=== PATIENT | male | born 1950 | race Caucasian/White ===

== ENCOUNTER 2024-12-31 12:09 | Emergency (ER) | payer OTHER, SELFPAY ==
[2024-12-31 12:12] VITALS: BP 159/74; PULSE 84; RESP 18; TEMP 36.6; O2SAT 97
[2024-12-31 12:14] VITALS: BP 159/74; PULSE 84; RESP 18; TEMP 36.6; O2SAT 97
--- NOTE | 2024-12-31 12:48 | W.ED.GENAD ---
Discharge Plan Disposition Patient Disposition: Home Condition: Stable Discharge Details Clinical Impression: Encounter for Pacheco catheter replacement Primary Care Provider: Laquita Callahan ED Provider: Angeline Paiz Home Meds and New Rx's Prescriptions: Continued albuterol sulfate 90 mcg/actuation HFA aerosol inhaler 2 puff inhalation Q4H PRN carboxymethylcellulose sodium 0.5 % dropperette 1 drp ophthalmic (eye) QID Rx Instructions: instill one drop in both eyes four times a day for dry eye clopidogrel 75 mg tablet 75 mg PO DAILY colchicine 0.6 mg tablet 0.6 mg PO DAILY Rx Instructions: take tablets by mouth as directed: for gout at first sign of gout flare, take 2 tablets immediately then take 1 tablet 1 hour later, then take 1 tablet twice daily for 2 days. Then 1 tablet daily for 2 days. Then stop. diclofenac sodium 3 % gel 1 applic topical BID Rx Instructions: apply 1 application topically twice daily as needed for pain/inflammation apply to left shoulder diltiazem HCl 120 mg capsule,extended release 24hr 120 mg PO DAILY duloxetine 60 mg capsule,delayed release(DR/EC) 60 mg PO DAILY tiotropium-olodaterol 2.5-2.5 mcg/actuation mist 2 puff inhalation DAILY prazosin 2 mg capsule 2 mg PO QHS rosuvastatin 40 mg tablet 40 mg PO DAILY tamsulosin 0.4 mg capsule 0.4 mg PO DAILY tiotropium bromide 2.5 mcg/actuation mist 2 puff inhalation DAILY semaglutide (weight loss) 2.4 mg/0.75 mL pen injector 2.4 mg subcut QWEEK omega-3 fatty acids 1,000 mg capsule 1,000 mg PO DAILY Discharge Instructions Instructions: How to Care for Your Pacheco Catheter Additional Instructions: Your Pacheco catheter was replaced today. Please ensure that it is draining properly, please follow-up as previously instructed by the [place]. Follow up with primary care provider or as directed by the [place], urology as previously instructed. Return to ED sooner if any worsening problems with the Pacheco catheter, inability to drain, large blood clots, abdominal pressure, fever or concerns. Referrals: [facility] [Outside] Referral Note: ER follow up Call for Appt Clinical Impression: Encounter for Pacheco catheter replacement Laquita Callahan [Primary Care Provider, Medicine] - 1 week Discharge Data Discharge Date/Time-TO BE ENTERED AT DEPARTURE: 12/31/24 14:26 HPI General Mode of arrival: ambulatory. Date/Time Provider Initiated Documentation: 12/31/24 12:19. Limitations to Documentation: no limitations. Information obtained by: patient, family, RN notes reviewed and old records reviewed. HPI Narrative: 74-year-old male presents with decreased urine drainage from his Pacheco catheter since 3:00 this morning. He reports that the bag became dislodged from the catheter inadvertently. He now states that he has burning every time when standing up and feels the urgency of and need to urinate. There is minimal drainage from the urinary bag. Denies any other associated symptoms or concerns. The Pacheco was placed for urinary retention at the [facility] on Saturday, patient states that he had over 900 cc in his bladder at the time of insertion. Related Data Home Medications ?Medication ?Instructions ?Recorded ?Confirmed albuterol sulfate 90 mcg/actuation 2 puff inhalation Q4H PRN 07/30/24 12/31/24 aerosol inhaler carboxymethylcellulose sodium 0.5 1 drp ophthalmic (eye) QID 07/30/24 12/31/24 % eye drops in a dropperette clopidogrel 75 mg tablet 75 mg PO DAILY 07/30/24 12/31/24 colchicine 0.6 mg tablet 0.6 mg PO DAILY 07/30/24 12/31/24 diclofenac sodium 3 % topical gel 1 applic topical BID 07/30/24 12/31/24 diltiazem HCl 120 mg capsule,24 120 mg PO DAILY 07/30/24 12/31/24 hr,extended release duloxetine 60 mg capsule,delayed 60 mg PO DAILY 07/30/24 12/31/24 release omega-3 fatty acids 1,000 mg 1,000 mg PO DAILY 07/30/24 12/31/24 capsule prazosin 2 mg capsule 2 mg PO QHS 07/30/24 12/31/24 rosuvastatin 40 mg tablet 40 mg PO DAILY 07/30/24 12/31/24 semaglutide (weight loss) 2.4 2.4 mg subcut QWEEK 07/30/24 12/31/24 mg/0.75 mL subcutaneous pen injector tamsulosin 0.4 mg capsule 0.4 mg PO DAILY 03/27/25 08/28/25 tiotropium 2.5 mcg-olodaterol 2.5 2 puff inhalation DAILY 07/30/24 12/31/24 mcg/actuation mist for inhalation tiotropium bromide 2.5 2 puff inhalation DAILY 07/30/24 12/31/24 mcg/actuation mist for inhalation Allergies Allergy/AdvReac Type Severity Reaction Status Date / Time aspirin Allergy Other (See Verified 12/31/24 12:15 Comment) nafcillin Allergy Other (See Verified 12/31/24 12:15 Comment) General Stated Complaint: Urinary LEO: 4 Review of Systems All systems reviewed & are unremarkable except as noted in HPI and below Constitutional Constitutional: Denies chills and Denies fever(s) Gastrointestinal Gastrointestinal: Reports abdominal pain (Suprapubic fullness), Denies hematochezia, Denies diarrhea and Denies nausea Genitourinary Genitourinary: Reports as per HPI, Reports oliguria, Reports dysuria (Burning and decreased drainage noted to Pacheco catheter bag), Denies penile discharge, Denies scrotal swelling, Denies testicular mass and Denies testicular pain Exam Narrative Exam Narrative: Constitutional: Alert and oriented x3. Appears stated age. Obese body habitus. Appears chronically ill. Nontoxic. Abdomen: Soft, non-distended, Normoactive bowel sounds all 4 quads. Mild tenderness suprapubically with palpation, exam limited due to patient girth. : Patient has an indwelling catheter and a leg bag noted, uncircumcised, see exam below, small amount of scant blood noted at the meatus, no significant drainage or testicular swelling, foreskin easily retractable. Musculoskeletal: Uses a walker, right BKA moves all 4 extremities with some difficulty. Neurologic: Cranial nerves II-XII intact. Alert and oriented x 3. Male General Exam: Yes other (Uncircumcised, small amount of blood at meatus) Other: Patient has a large pannus, Course Vital Signs Vital signs: Vital Signs Temperature 36.6 C 12/31/24 12:12 Pulse 84 12/31/24 12:12 Respiratory Rate 18 12/31/24 12:12 Blood Pressure 159/74 H 12/31/24 12:12 Pulse Oximetry 97 12/31/24 12:12 Temperature 36.6 C 12/31/24 12:14 Pulse 84 12/31/24 12:14 Respiratory Rate 18 12/31/24 12:14 Blood Pressure 159/74 H 12/31/24 12:14 Pulse Oximetry 97 12/31/24 12:14 Pain Level 4 12/31/24 12:14 Medical Decision Making 74-year-old male presents with decreased urine drainage from his Pacheco catheter since 3:00 this morning. He reports that the bag became dislodged from the catheter inadvertently. He now states that he has burning every time when standing up and feels the urgency of and need to urinate. There is minimal drainage from the urinary bag. Denies any other associated symptoms or concerns. The Pacheco was placed for urinary retention at the [facility] on Saturday, patient states that he had over 900 cc in his bladder at the time of insertion. Bladder scan ordered, Re-placement of Pacheco catheter and Uro-jet. staff nurse and patient aware of plan of care. Patient has no tachycardia no fever, denies any systemic symptoms, at this time I do not feel that urinalysis or blood work is warranted at this point. The report is that there was a possible mechanical dislodgment of the Pacheco catheter. Will plan to replace the Pacheco. Informed by staff nurse that Pacheco catheter was replaced with approximately 400 cc of sachi-colored urine output, it is actively draining. Patient reports improvement in symptoms. Will plan for discharge. Patient discharged in hemodynamically stable condition, reports feeling much improved. Patient discharged into the care of his . This text was generated using [employer] dictation system, please disregard any oddities of phrase or misspellings. PFSH All Active Problems (Updated 12/31/24 @ 14:02 by Angeline Paiz NP) Encounter for Pacheco catheter replacement (Acute) Post-traumatic stress disorder, chronic (Acute) Pain in left knee (Acute) Obstructive sleep apnea (adult) (pediatric) (Acute) Nonrheumatic aortic (valve) insufficiency (Acute) Muscle weakness (generalized) (Acute) Chronic obstructive pulmonary disease with (acute) exacerbation (Acute) Medical History (Updated 12/31/24 @ 14:02 by Angeline Paiz NP) Obesity Sleep apnea Aortic regurgitation CAD (coronary artery disease) Unspecified open wound, right lower leg, initial encounter Mild intermittent asthma with (acute) exacerbation Male erectile dysfunction, unspecified Major depressive disorder, 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
[2024-12-31] MEDS: Lidocaine 2% Jelly 11 ML SYR UR (13:27)
[2024-12-31 14:19] VITALS: BP 141/57; PULSE 84; RESP 14; TEMP 36.6; O2SAT 97
== END 2024-12-31 14:26 | disposition home or self-care (01) ==
PROVIDERS: Emergency Provider Registered Nurse Emergency; PCP Internal Medicine Geriatric Medicine
DX: T83.028A Displacement of other urinary catheter, initial encounter (principal)
CPT/HCPCS: 51702; 99283

== ENCOUNTER 2025-03-11 20:46 | Inpatient (IN) | payer OTHER, SELFPAY ==
[2025-03-11] VITALS (20 sets, daily range): BP systolic 111–115; BP diastolic 25–32; PULSE 47–71; RESP 18; TEMP 36.7; O2SAT 93–99
--- NOTE | 2025-03-11 20:30 | DI.RAD_ITS ---
Exam(s) XR TIB/FIB LT XR KNEE LT 3V AP,LAT,RUTH EXAM: XR KNEE LT 3V AP,LAT,RUTH and XR tib/fib LT CLINICAL HISTORY: L knee pain; fall. TECHNIQUE: 2D digital imaging was performed of the left tibia/fibula and knee. Five images were obtained. AP, lateral and PA tunnel views were obtained. COMPARISON: CR,XR XR TIB/FIB LT from 03/11/2025 FINDINGS: BONES: There is an acute transverse fracture through the proximal metaphysis of the tibia. It occurs adjacent to the distal aspect of the tibial component of the patient's knee arthroplasty. On the lateral view, there also appears to be a nondisplaced oblique fracture through the fibular head. There is an enthesophyte versus fracture fragment at the superior patella. The distal tibia and fibula are intact. There is an enthesophyte at the posterior calcaneus. JOINTS: There are postsurgical changes of a left total knee arthroplasty. There is a joint effusion. No loose body. SOFT TISSUE: Normal. IMPRESSION: 1. Periprosthetic transverse fracture through the proximal tibial metaphysis involving the interface between the orthopedic hardware in the segment. 2. Findings suggestive of a nondisplaced oblique fracture through the fibular head best appreciated on the lateral view. 3. Enthesophyte versus fracture involving the superior patella. 4. The preliminary [facility] report was reviewed. DATA REPOSITORY: RADIATION DOSE DELIVERED:
--- NOTE | 2025-03-11 20:45 | W.ED.GENAD ---
Discharge Plan Disposition Patient Disposition: Transfer-Acute Inpatient Care Specific Acute Inpt Facility: Other Condition: Stable Discharge Details Clinical Impression: Periprosthetic fracture around internal prosthetic left knee joint Primary Care Provider: Laquita Callahan ED Provider: Ronaldo Kearney Home Meds and New Rx's Prescriptions: No Action albuterol sulfate 90 mcg/actuation HFA aerosol inhaler 2 puff inhalation Q4H PRN carboxymethylcellulose sodium 0.5 % dropperette 1 drp ophthalmic (eye) QID Rx Instructions: instill one drop in both eyes four times a day for dry eye clopidogrel 75 mg tablet 75 mg PO DAILY colchicine 0.6 mg tablet 0.6 mg PO DAILY Rx Instructions: take tablets by mouth as directed: for gout at first sign of gout flare, take 2 tablets immediately then take 1 tablet 1 hour later, then take 1 tablet twice daily for 2 days. Then 1 tablet daily for 2 days. Then stop. diclofenac sodium 3 % gel 1 applic topical BID Rx Instructions: apply 1 application topically twice daily as needed for pain/inflammation apply to left shoulder diltiazem HCl 120 mg capsule,extended release 24hr 120 mg PO DAILY duloxetine 60 mg capsule,delayed release(DR/EC) 60 mg PO DAILY tiotropium-olodaterol 2.5-2.5 mcg/actuation mist 2 puff inhalation DAILY prazosin 2 mg capsule 2 mg PO QHS rosuvastatin 40 mg tablet 40 mg PO DAILY tamsulosin 0.4 mg capsule 0.4 mg PO DAILY tiotropium bromide 2.5 mcg/actuation mist 2 puff inhalation DAILY semaglutide (weight loss) 2.4 mg/0.75 mL pen injector 2.4 mg subcut QWEEK omega-3 fatty acids 1,000 mg capsule 1,000 mg PO DAILY HPI General Date/Time Provider Initiated Documentation: 03/11/25 21:38. HPI Narrative: 74 year-old male presents to ED today by EMS with a chief complaint of ground level fall at home getting into his car, felt a crack, pain to L knee and proximal grady- has contralateral amputation, with onset just prior to arrival, may have slightly bumped his head without LOC. Quality described as very painful L grady, no radiation to open wound/bleeding, numbness/tingling distally, confusion, nausea, vomiting, scalp hematoma. Severity is described as severe. Palliating factors include 1g APAP given by EMS. Provoking factors include nothing specific. Events leading up to the incident/Associated Symptoms: Patient has knee replacement to this knee, done [facility]. Patient not anticoagulated. Related Data Home Medications Medication Instructions Recorded Confirmed albuterol sulfate 90 mcg/actuation 2 puff inhalation Q4H PRN 07/30/24 03/11/25 aerosol inhaler carboxymethylcellulose sodium 0.5 1 drp ophthalmic (eye) QID 07/30/24 03/11/25 % eye drops in a dropperette clopidogrel 75 mg tablet 75 mg PO DAILY 07/30/24 03/11/25 colchicine 0.6 mg tablet 0.6 mg PO DAILY 07/30/24 03/11/25 diclofenac sodium 3 % topical gel 1 applic topical BID 07/30/24 03/11/25 diltiazem HCl 120 mg capsule,24 120 mg PO DAILY 07/30/24 03/11/25 hr,extended release duloxetine 60 mg capsule,delayed 60 mg PO DAILY 07/30/24 03/11/25 release omega-3 fatty acids 1,000 mg 1,000 mg PO DAILY 07/30/24 03/11/25 capsule prazosin 2 mg capsule 2 mg PO QHS 07/30/24 03/11/25 rosuvastatin 40 mg tablet 40 mg PO DAILY 07/30/24 03/11/25 semaglutide (weight loss) 2.4 2.4 mg subcut QWEEK 07/30/24 03/11/25 mg/0.75 mL subcutaneous pen injector tamsulosin 0.4 mg capsule 0.4 mg PO DAILY 07/30/24 03/11/25 tiotropium 2.5 mcg-olodaterol 2.5 2 puff inhalation DAILY 07/30/24 03/11/25 mcg/actuation mist for inhalation tiotropium bromide 2.5 2 puff inhalation DAILY 07/30/24 03/11/25 mcg/actuation mist for inhalation Allergies Allergy/AdvReac Type Severity Reaction Status Date / Time aspirin Allergy Other (See Verified 12/31/24 12:15 Comment) nafcillin Allergy Other (See Verified 12/31/24 12:15 Comment) General Stated Complaint: Orthopedic LEO: 3 Review of Systems All systems reviewed & are unremarkable except as noted in HPI and below Exam Narrative Exam Narrative: GENERAL APPEARANCE: obesity, non-toxic, awake and alert, atraumatic, moderate acute distress. SKIN: Warm, pink, dry, intact, without rashes/lesions/ulcerations. HEAD: Normocephalic, very minor abrasion pinpoint to left crown without Pastrana sign or periorbital ecchymosis, normal hair distribution for gender/age. EYES: Normal conjunctiva, no exudates on lids/lashes. ENT: Nares patent, no circumoral cyanosis, no facial swelling NECK: Supple, trachea midline, painless cervical ROM. LUNGS/CHEST: Lungs CTA bilaterally- no rhonchi/rales, difficult auscultation to body habitus, non-labored respirations, normal A/P diameter, symmetrical expansion, no chest wall deformity HEART (CV/PV): Regular rate and rhythm without murmur, no peripheral edema, no JVD. ABDOMEN: Soft, non-distended, no guarding, no tenderness. MSK: No cyanosis, spine midline without tenderness, normal curvature. R leg BKA, L leg: Exquisite tenderness to the proximal grady, patellar tenderness, special tests of the knee not tolerated, mild swelling without severe ecchymosis or skin changes, brisk capillary refill distal, no femoral tenderness and femur stable to palpation, no left hip tenderness NEURO: Mental Status AAOx4 - alert to person, place, time, events No facial droop, no forehead involvement. Motor: No focal weakness of upper extremities Sensory: sensation intact to light touch globally. Gait NT. PSYCH: euthymic, cooperative, pleasant, appropriate speech Course Vital Signs Vital signs: Vital Signs Temperature 36.7 C 03/11/25 20:28 Pulse 54 L 03/11/25 20:28 Respiratory Rate 18 03/11/25 20:28 Pulse Oximetry 98 03/11/25 20:28 Temperature 36.7 C 03/11/25 20:28 Temperature Source Oral 03/11/25 20:28 Pulse 54 L 03/11/25 20:28 Respiratory Rate 18 03/11/25 20:28 Blood Pressure Position Supine 03/11/25 20:28 Pulse Oximetry 98 03/11/25 20:28 Pain Level 10 03/11/25 20:28 Medical Decision Making This dictation utilizes [id number] dictation software and may contain unedited grammatical errors. 74 year-old male presents to ED today by EMS with a chief complaint of ground level fall at home getting into his car, felt a crack, pain to L knee and proximal grady- has contralateral amputation, with onset just prior to arrival, may have slightly bumped his head without LOC. Quality described as very painful L grady, no radiation to open wound/bleeding, numbness/tingling distally, confusion, nausea, vomiting, scalp hematoma. Severity is described as severe. Palliating factors include 1g APAP given by EMS. Provoking factors include nothing specific. Events leading up to the incident/Associated Symptoms: Patient has knee replacement to this knee, done at the [facility] in November. Patients' medical history: Obesity, sleep apnea, aortic regurg, CAD, history of right BKA, COPD. Family and social history: Lives at home with his , no recent travel or sick contacts, no EtOH or drug use. Pertinent exam findings / vital signs include exquisite tenderness to the proximal grady of the left leg without severe bruising, no open wound or bleeding, tenderness to the left patella, did not tolerate any special tests of the knee, satiety abrasion to the left crown of his head without scalp hematoma, no Pastrana sign, periorbital ecchymosis, benign cardiopulmonary exam. Differential / pathologies of concern include ICH, fracture. Diagnostic studies of: - CT head without contrast, XR L knee and tib/fib, basic laboratory workup. - CT head is unremarkable no intracranial bleeding - X-ray shows periprosthetic fracture of the proximal tibia & likely patellar fracture- patient not tolerating 4 view XR at this time Interventions of: -Consult with [facility] for transfer- paged at [phone] - they have no ortho coverage. -Discussed with Dr. Pride, not able to consult on the patient tomorrow if admitted here, will seek transfer as this may require plate. -1g APAP by EMS -0.5mg IVP hydromorphone PRN Q2hr ED Course/Assessment/Plan: 74-year-old male presents with a fall getting into his car at home where he hurt his left leg significantly hearing a pop or crack having periprosthetic fracture to proximal tibia without fibular fracture and a suspected patellar fracture on lateral view patient not tolerating fourth view x-ray at this time. CT head is negative for acute intracranial bleeding. Patient [facility], I am approaching them for transfer as we do not have orthopedic capability tonight and they have not refused the patient. Patient signed out to oncoming provider at shift change with transfer likely. Pain well controlled with one dose hydromorphone and [facility]AP. [facility] to [facility] him here per our orthopaedics consult. Seeking transfer to [facility] - spoke with Dr. Benson from [facility] ortho- they will take the patient in transfer with admit to hospitalist service at [facility]. Signed out at shift change to Dr. Shin pending accepting physician from [facility] medicine service, transfer tomorrow. Disposition of Periprosthetic fracture around internal prosthetic left knee joint. Patient verbalized understanding of the plan and return to ED criteria and engaged in shared decision making. Medical Records Medical records reviewed: Yes I reviewed the patient's medical records. Imaging Data Radiologic Study: Attestation: I personally reviewed and interpreted this imaging study as follows: Imaging: CT Scan Radiologist's impression: Addendum created by Haroon Wilkerson MD on 03/11/2025 9:32:59 PM EST: THIS REPORT CONTAINS FINDINGS THAT MAY BE CRITICAL TO PATIENT CARE. The findings were verbally communicated via telephone conference with RONALDO KEARNEY at 9:32 PM EST on 03/11/2025. The findings were acknowledged and understood. Initial report created on 03/11/2025 9:30:21 PM EST: PROCEDURE INFORMATION: Exam: CT Head Without Contrast Exam date and time: 03/11/2025 8:56 PM Age: 74 years old Clinical indication: Unspecified fall, initial encounter; Other: Fall with headstrike on blood thinners; Headache TECHNIQUE: Imaging protocol: Computed tomography of the head without contrast. Radiation optimization: All CT scans at this facility use at least one of these dose optimization techniques: automated exposure control; mA and/or kV adjustment per patient size (includes targeted exams where dose is matched to clinical indication); or iterative reconstruction. Other technique: STROKE PROTOCOL was implemented. COMPARISON: No relevant prior studies available. FINDINGS: Brain: Slight prominence of cerebral sulci reflects mild atrophy with no supratentorial mass or mass effect detected. Brainstem and cerebellum are unremarkable. There is no evidence of acute transcortical infarction or recent intracranial hemorrhage. Cerebral ventricles: No midline shift or hydrocephalus. Paranasal sinuses: A few scattered right-sided ethmoidal mucosal densities are identified with other paranasal sinuses grossly clear throughout. Mastoid air cells: Grossly clear bilaterally. Bones: No acute fracture. Soft tissues: Unremarkable. IMPRESSION: Mild cerebral atrophy with no evidence of acute infarct, recent intracranial hemorrhage or hydrocephalus. No acute intracranial process is detected. ASSESSMENT: ASPECTS ([place] Stroke Program Early CT Score) is 10. Dictated and Authenticated by: Haroon Wilkerson MD. Radiologic Study #2: Attestation: I personally reviewed and interpreted this imaging study as follows: Imaging: X-Ray Radiologist's impression: Exam: XR Left Knee Exam date and time: 03/11/2025 9:08 PM Age: 74 years old Clinical indication: Injury or trauma; Fall; Fracture, traumatic; Closed fracture; Patella or knee; Left; Prior surgery; Surgery date: 1-6 months; Surgery type: 11/2024 replacment TECHNIQUE: Imaging protocol: Radiologic exam of the left knee. Views: 3 views. COMPARISON: No relevant prior studies available. FINDINGS: Bones/joints: There has been previous left-sided total knee arthroplasty. A transverse periprosthetic fracture involves the proximal left tibial metaphysis along the inferior margin of the left tibial prosthesis and cement interface. Suspected comminuted fracture is also seen along the superior pole of the left patella on the lateral projection. No other acute fractures are detected. Soft tissues: Probable joint effusion with fluid in the suprapatellar pouch on the lateral view. IMPRESSION: A transverse periprosthetic fracture involves the proximal left tibial metaphysis along the inferior margin of the left tibial prosthesis and cement interface. Suspected comminuted fracture is also seen along the superior pole of the left patella on the lateral projection. Probable left knee joint effusion also identified as above. Dictated and Authenticated by: Haroon Wilkerson MD. Radiologic Study #3: Attestation: I personally reviewed and interpreted this imaging study as follows: Imaging: X-Ray Radiologist's impression: Exam: XR Left Tibia and Fibula Exam date and time: 03/11/2025 9:10 PM Age: 74 years old Clinical indication: Injury or trauma; Fall; Blunt trauma; Lower leg; Left TECHNIQUE: Imaging protocol: Radiologic exam of the left tibia and fibula. Views: 2 views. COMPARISON: CR XR KNEE LT 3V AP,LAT,RUTH 03/11/2025 9:08 PM FINDINGS: Bones/joints: There has been previous left-sided total knee arthroplasty. A transverse periprosthetic fracture involves the proximal left tibial metaphysis along the inferior margin of the left tibial prosthesis and cement interface. No other left tibial or fibular fracture is detected. Soft tissues: Unremarkable. IMPRESSION: A transverse periprosthetic fracture involves the proximal left tibial metaphysis along the inferior margin of the left tibial prosthesis and cement interface. No other left tibial or fibular fracture is detected. Dictated and Authenticated by: Haroon Wilkerson MD. [facility] All Active Problems (Updated 03/11/25 @ 21:50 by JOSESITO Walden) Periprosthetic fracture around internal prosthetic left knee joint (Acute) Post-traumatic stress disorder, chronic (Acute) Pain in left knee (Acute) Obstructive sleep apnea (adult) (pediatric) (Acute) Nonrheumatic aortic (valve) insufficiency (Acute) Muscle weakness (generalized) (Acute) Chronic obstructive pulmonary disease with (acute) exacerbation (Acute) Medical History (Updated 03/11/25 @ 21:50 by JOSESITO Walden) Obesity Sleep apnea Aortic regurgitation CAD (coronary artery disease) Unspecified open wound, right lower leg, initial encounter Mild intermittent asthma with (acute) exacerbation Male erectile dysfunction, unspecified Major depressive disorder, 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
[2025-03-11] MEDS: HYDROmorphone 2 MG/ML SYR 0.5 MG IVP ×2 (20:56→23:07)
--- NOTE | 2025-03-11 21:17 | DI.CT_ITS ---
Exam(s) CT HEAD WO EXAM: CT HEAD WO CLINICAL HISTORY: fall on thinners, bump to L crown. TECHNIQUE: Imaging Protocol: Axial computed tomography images with coronal and sagittal reformatted images were created and reviewed COMPARISON: No exams were available for comparison FINDINGS: Ventricles and Extra axial spaces: Normal in size and morphology for the patient's age. Hemorrhage: None. Cerebral parenchyma: There is no evidence of an acute territorial infarct or mass effect. Midline shift: None. Brainstem/Cerebellum: Normal. Calvarium: Normal. Visualized Paranasal sinuses/Mastoids: Clear. Soft Tissues: Unremarkable. IMPRESSION: 1. No acute intracranial process. 2. The preliminary [facility] report was reviewed. RADIATION DOSE DELIVERED: 861.85mGy.cm Total DLP DATA REPOSITORY: All CT scans at this facility are submitted to the National Radiology Data Registry (NRDR) Dose Index Registry (DIR) with the [employer] (ACR). RADIATION OPTIMIZATION: All CT scans at this facility use at least one of these dose optimization techniques: automated exposure control; mA and/or kV adjustment per patient size (includes targeted exams where dose is matched to clinical indication); or iterative reconstruction.
--- NOTE | 2025-03-11 21:31 | DI.[facility]AD_ITS ---
Addendum created by Haroon Wilkerson MD on 03/11/2025 9:32:59 PM EST: THIS REPORT CONTAINS FINDINGS THAT MAY BE CRITICAL TO PATIENT CARE. The findings were verbally communicated via telephone conference with LATRICE KEARNEY at 9:32 PM EST on 03/11/2025. The findings were acknowledged and understood. Initial report created on 03/11/2025 9:30:21 PM EST: PROCEDURE INFORMATION: Exam: CT Head Without Contrast Exam date and time: 03/11/2025 8:56 PM Age: 74 years old Clinical indication: Unspecified fall, initial encounter; Other: Fall with headstrike on blood thinners; Headache TECHNIQUE: Imaging protocol: Computed tomography of the head without contrast. Radiation optimization: All CT scans at this facility use at least one of these dose optimization techniques: automated exposure control; mA and/or kV adjustment per patient size (includes targeted exams where dose is matched to clinical indication); or iterative reconstruction. Other technique: STROKE PROTOCOL was implemented. COMPARISON: No relevant prior studies available. FINDINGS: Brain: Slight prominence of cerebral sulci reflects mild atrophy with no supratentorial mass or mass effect detected. Brainstem and cerebellum are unremarkable. There is no evidence of acute transcortical infarction or recent intracranial hemorrhage. Cerebral ventricles: No midline shift or hydrocephalus. Paranasal sinuses: A few scattered right-sided ethmoidal mucosal densities are identified with other paranasal sinuses grossly clear throughout. Mastoid air cells: Grossly clear bilaterally. Bones: No acute fracture. Soft tissues: Unremarkable. IMPRESSION: Mild cerebral atrophy with no evidence of acute infarct, recent intracranial hemorrhage or hydrocephalus. No acute intracranial process is detected. ASSESSMENT: ASPECTS ([place] Stroke Program Early CT Score) is 10. Dictated and Authenticated by: Haroon Wilkerson MD. Orderin Edwin Higgins MD
--- NOTE | 2025-03-11 21:36 | DI.[facility]AD_ITS ---
PROCEDURE INFORMATION: Exam: XR Left Knee Exam date and time: 03/11/2025 9:08 PM Age: 74 years old Clinical indication: Injury or trauma; Fall; Fracture, traumatic; Closed fracture; Patella or knee; Left; Prior surgery; Surgery date: 1-6 months; Surgery type: 11/2024 replacment TECHNIQUE: Imaging protocol: Radiologic exam of the left knee. Views: 3 views. COMPARISON: No relevant prior studies available. FINDINGS: Bones/joints: There has been previous left-sided total knee arthroplasty. A transverse periprosthetic fracture involves the proximal left tibial metaphysis along the inferior margin of the left tibial prosthesis and cement interface. Suspected comminuted fracture is also seen along the superior pole of the left patella on the lateral projection. No other acute fractures are detected. Soft tissues: Probable joint effusion with fluid in the suprapatellar pouch on the lateral view. IMPRESSION: A transverse periprosthetic fracture involves the proximal left tibial metaphysis along the inferior margin of the left tibial prosthesis and cement interface. Suspected comminuted fracture is also seen along the superior pole of the left patella on the lateral projection. Probable left knee joint effusion also identified as above. Dictated and Authenticated by: Haroon Wilkerson MD. Orderin Edwin Higgins MD
--- NOTE | 2025-03-11 21:37 | DI.VRAD_ITS ---
PROCEDURE INFORMATION: Exam: XR Left Tibia and Fibula Exam date and time: 03/11/2025 9:10 PM Age: 74 years old Clinical indication: Injury or trauma; Fall; Blunt trauma; Lower leg; Left TECHNIQUE: Imaging protocol: Radiologic exam of the left tibia and fibula. Views: 2 views. COMPARISON: CR XR KNEE LT 3V AP,LAT,RUTH 03/11/2025 9:08 PM FINDINGS: Bones/joints: There has been previous left-sided total knee arthroplasty. A transverse periprosthetic fracture involves the proximal left tibial metaphysis along the inferior margin of the left tibial prosthesis and cement interface. No other left tibial or fibular fracture is detected. Soft tissues: Unremarkable. IMPRESSION: A transverse periprosthetic fracture involves the proximal left tibial metaphysis along the inferior margin of the left tibial prosthesis and cement interface. No other left tibial or fibular fracture is detected. Dictated and Authenticated by: Haroon Wilkerson MD. Orderin Edwin Higgins MD
[2025-03-12 00:08] VITALS: BP 113/57; PULSE 56; RESP 18; O2SAT 95
[2025-03-12 00:51] VITALS: BP 110/50; PULSE 64; RESP 18; TEMP 36.6; O2SAT 98
--- NOTE | 2025-03-12 00:58 | W.PM.HP.N ---
Date of service: 03/12/25 Time of Service: 00:58 Assessment and Plan Assessment and plan (1) Pain in left knee: Status: Acute Assessment and plan: Patient with tibial fracture will need surgical correction patient. Patient to be discharged to [facility] clinic that is available. (2) Chronic obstructive pulmonary disease with (acute) exacerbation: Status: Acute Assessment and plan: Continue with inhalers albuterol/tiotropium/olodaterol (3) Hx of right BKA: Assessment and plan: Noted DVT prophylaxis with Lovenox. (4) BPH (benign prostatic hyperplasia): Status: Chronic Assessment and plan: cw prazosin and flomax (5) Gout: Status: Chronic Assessment and plan: cw colchicine (6) Dyslipidemia: Status: Acute Assessment and plan: cw rosuvastatin (7) Chronic indwelling Pacheco catheter: Status: Acute Assessment and plan: Placed approx 12/23/24 at the [facility] assuming perioperatively/post op. Follow up as outpatient History of Present Illness History of Present Illness Chief Complaint: left knee pain Narrative: This is a 74-year-old gentleman with a known history of traumatic right AKA during his service in [place] recently had a left knee replacement at the [facility] in November of this year. Was getting into his car and fell and immediately had left lower extremity pain mostly isolated to his knee. He went to the ED for evaluation and was noted to have a tibial fracture tibial fracture. Our ED physician Dr. Shin reached out to [facility] and the patient was accepted as a transfer for tomorrow. Initially reached out to the [facility] but there was no bed availability. Patient was given Dilaudid in the ED with good improvement in his pain levels. It does appear the patient has COPD, gout, hypertension, dyslipidemia and BPH. Lab work is pending at this time. A CT of the head was negative for any intracranial abnormalities. I will add the impression of his tibial film to the bottom of his document. Of note, pt states that he takes plavix because part of my heart isn't getting blood. Pt denies h/o chf though. IMPRESSION: A transverse periprosthetic fracture involves the proximal left tibial metaphysis along the inferior margin of the left tibial prosthesis and cement interface. No other left tibial or fibular fracture is detected. Review of Systems All systems reviewed & are unremarkable except as noted in HPI and below PFSH All Active Problems (Updated 03/12/25 @ 01:10 by tSef Norman MD) Chronic indwelling Pacheco catheter (Acute) Dyslipidemia (Acute) Gout (Chronic) BPH (benign prostatic hyperplasia) (Chronic) Periprosthetic fracture around internal prosthetic left knee joint (Acute) Post-traumatic stress disorder, chronic (Acute) Pain in left knee (Acute) Obstructive sleep apnea (adult) (pediatric) (Acute) Nonrheumatic aortic (valve) insufficiency (Acute) Muscle weakness (generalized) (Acute) Chronic obstructive pulmonary disease with (acute) exacerbation (Acute) Medical History (Updated 03/12/25 @ 01:10 by Stef Norman MD) Obesity Sleep apnea Aortic regurgitation CAD (coronary artery disease) Unspecified open wound, right lower leg, initial encounter Mild intermittent asthma with (acute) exacerbation Male erectile dysfunction, unspecified Major depressive disorder, 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 Meds Allergies and Home Medications Allergies Allergy/AdvReac Type Severity Reaction Status Date / Time aspirin Allergy Other (See Verified 12/31/24 12:15 Comment) nafcillin Allergy Other (See Verified 12/31/24 12:15 Comment) Home Medications Medication Instructions Recorded Confirmed Type albuterol sulfate 90 mcg/actuation 2 puff inhalation Q4H PRN 07/30/24 03/11/25 History aerosol inhaler carboxymethylcellulose sodium 0.5 1 drp ophthalmic (eye) QID 07/30/24 03/11/25 History % eye drops in a dropperette clopidogrel 75 mg tablet 75 mg PO DAILY 07/30/24 03/11/25 History colchicine 0.6 mg tablet 0.6 mg PO DAILY 07/30/24 03/11/25 History diclofenac sodium 3 % topical gel 1 applic topical BID 07/30/24 03/11/25 History diltiazem HCl 120 mg capsule,24 120 mg PO DAILY 07/30/24 03/11/25 History hr,extended release duloxetine 60 mg capsule,delayed 60 mg PO DAILY 07/30/24 03/11/25 History release omega-3 fatty acids 1,000 mg 1,000 mg PO DAILY 07/30/24 03/11/25 History capsule prazosin 2 mg capsule 2 mg PO QHS 07/30/24 03/11/25 History rosuvastatin 40 mg tablet 40 mg PO DAILY 07/30/24 03/11/25 History semaglutide (weight loss) 2.4 2.4 mg subcut QWEEK 07/30/24 03/11/25 History mg/0.75 mL subcutaneous pen injector tamsulosin 0.4 mg capsule 0.4 mg PO DAILY 07/30/24 03/11/25 History tiotropium 2.5 mcg-olodaterol 2.5 2 puff inhalation DAILY 07/30/24 03/11/25 History mcg/actuation mist for inhalation tiotropium bromide 2.5 2 puff inhalation DAILY 07/30/24 03/11/25 History mcg/actuation mist for inhalation Exam Narrative Exam Narrative: HEENT-normocephalic atraumatic with moist Neck-no lymphadenopathy no JVD no thyromegaly Cardiovascular-regular rate and rhythm with distant Lungs-clear to auscultation bilaterally good air exchange Abdomen-protuberant Extremities left knee pain with palpation. Right BKA. Prosthetics in place. Pacheco in place Psych alert and oriented x 3 Results Labs 03/12/25 05:35 03/12/25 05:35 Last Vital Signs Temp 36.7 C 03/11/25 20:28 Pulse 56 L 03/12/25 00:08 Resp 18 03/12/25 00:08 BP 113/57 L 03/12/25 00:08 Pulse Ox 95 03/12/25 00:08 Time Spent Time spent with Patient: 40-54 minutes Time was spent: preparing to see the patient(eg.review tests), obtaining and/or reviewing separately otained hiistory, ordering medications,tests, procedures, referring, communicating with other health health care coordinator, indepentently interpreting results, counseling the patient and care coordination
[2025-03-12] MEDS: Prazosin 2 MG CAP PO (01:59)
[2025-03-12] MEDS: Enoxaparin 40 MG/0.4 ML SYR SC (01:59)
[2025-03-12] MEDS: Acetaminophen 325 MG TAB PO (03:57)
--- NOTE | 2025-03-12 04:09 | W.PC.ACHO ---
Registration Status: ADM IN Primary Language: Preferred Language: ED Information & Data Chief Complaint Orthopedic 03/11/25 20:45 Triage Note Pt biba with complaints of L 03/11/25 20:28 knee pain. Pt had knee replacement in November. Pt was getting into his car when his knee gave out and he fell. Pt reports he hit his head, (+) blood thinners. 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, bilateral upper limbs Erythema intertrigo Contact with and (suspected) exposure to other hazardous substances Complete tear of right rotator cuff Complete rotator cuff tear of left shoulder (Last Updated 07/30/24 @ 09:39 by Grace Kidd, ISABELLA) S/P rotator cuff repair S/P gastrectomy Hx of right BKA S/p reverse total shoulder arthroplasty Most Recent Vital Signs Temperature 36.6 C 03/12/25 00:51 Temperature Source Oral 03/11/25 20:28 Pulse 64 03/12/25 00:51 Pulse Rhythm Regular 03/12/25 00:51 Respiratory Rate 18 03/12/25 00:51 Respiratory Effort Normal 03/12/25 00:51 Respiratory Depth Normal 03/12/25 00:51 Blood Pressure 110/50 L 03/12/25 00:51 Blood Pressure Mean 75 03/12/25 00:08 Blood Pressure Position Supine 03/11/25 20:28 Pulse Oximetry 98 03/12/25 00:51 Oxygen Delivery Method Room Air 03/12/25 00:51 Oxygen Flow Rate 0 03/12/25 00:51 Pain Level 2 03/12/25 00:20 Allergies aspirin Allergy (Verified 12/31/24 12:15) Other (See Comment) nafcillin Allergy (Verified 12/31/24 12:15) Other (See Comment) Precautions Isolation Standard precaution 03/11/25 20:41 Active Medications Generic Name Dose Route Start Last Admin Trade Name Freq PRN Reason Stop Dose Admin Acetaminophen 325 - 650 mg 03/12/25 01:22 03/12/25 03:57 Acetaminophen 325 Mg Tab PO 650 mg Q4H PRN PRN Administration Enoxaparin Sodium 40 mg 03/11/25 23:45 03/12/25 01:59 Enoxaparin 40 Mg/0.4 Ml Syr SC 40 mg Q24H PATRICK Administration Hydromorphone HCl 0.5 mg 03/11/25 20:42 03/11/25 23:07 Hydromorphone 2 Mg/Ml Syr IVP 0.5 mg Q2H PRN PRN Administration Prazosin HCl 2 mg 03/12/25 01:30 03/12/25 01:59 Prazosin 2 Mg Cap PO 2 mg HS PATRICK Administration IV IV Catheter Type [Right Saline Lock Antecubital] IV Catheter Gauge [Right 20 Antecubital] Diet Orders Category Date Time Status Regular/Normal [DIET] Nutrition 03/12/25 Breakfast Active Diagnostics 03/12/25 Range/Units 05:35 WBC Pending RBC Pending Hgb Pending Hct Pending MCV Pending MCH Pending MCHC Pending RDW Pending Plt Count Pending MPV Pending Immature Gran % Pending Neutrophils % Pending Lymphocytes % Pending Monocytes % Pending Eosinophils % Pending Basophils % Pending Absolute Neutrophils Pending Absolute Lymphocytes Pending Absolute Monocytes Pending Absolute Eosinophils Pending Absolute Basophils Pending Sodium Pending Potassium Pending Chloride Pending Carbon Dioxide Pending Anion Gap Pending BUN Pending Creatinine Pending Est GFR (CKD-EPI 2020) Pending Glucose Pending Calcium Pending Total Bilirubin Pending AST Pending ALT Pending Alkaline Phosphatase Pending Total Protein Pending Albumin Pending Intake and Output - 24 Hour Total 03/11/25 20:15 thru 03/12/25 01:12 Weight 151.228 kg Other: Urine Appearance Clear Falls Risk Assessment History of Falls Admit Due to Fall 03/12/25 00:51 Contributing Factors Impairments 03/11/25 23:24 Ambulatory Aids Uses ambulatory device 03/12/25 00:51 Tubes/Lines With any additional score 03/11/25 23:24 Gait Evaluation No gait disturbance 03/11/25 23:24 Cognition No cognitive impairment 03/11/25 23:24 Fall Total Score 40 03/12/25 00:51 Level of Risk Moderate Risk 03/12/25 00:51 Problems (Last Updated 07/30/24 @ 09:33 by Grace Kidd RN) Chronic indwelling Pacheco catheter (Acute) Dyslipidemia (Acute) Gout (Chronic) BPH (benign prostatic hyperplasia) (Chronic) Pain in left knee (Acute) Chronic obstructive pulmonary disease with (acute) exacerbation (Acute) v v v v v v v v v Sending and/or Receiving Nurses: Please use comment section below to note any information pertinent to the patient hand-off not included above. Information / Comments: Report received from: Grace MASON all questions answered.
[2025-03-12 06:58] LABS: Abs Immature Grans 0.01 10^3/uL (0.0-0.06); HCT 36.3 % (40.0-50.0); HGB 11.9 g/dL (13.5-17.5); Immature Grans % 0.2 %; MCH 27.5 pg (27.0-33.0); MCHC 32.8 % (32.0-36.0); MCV 84 fL (80-95); MPV 9.8 fL (8.0-11.0); Platelet Count 206 10^3/uL (130-400); RBC 4.33 10^6/uL (4.36-5.78); RDW 13.7 % (11.8-14.1); RDW-SD 41.9 fL; WBC 6.65 10^3/uL (4.4-10.8)
[2025-03-12 07:20] LABS: ALT 18 U/L (16-63); AST 14 U/L (15-37); Albumin 2.7 g/dL (3.4-5.0); Alkaline Phosphatase 107 U/L (46-116); Anion Gap 5.4 mmol/L (3-11); BUN 8 mg/dL (7-18); Bilirubin, Total 0.9 mg/dL (0.2-1.0); CO2 30.6 mmol/L (21.0-32.0); Calcium 8.2 mg/dL (8.5-10.1); Chloride 103 mmol/L (98-107); Glucose 101 mg/dL (74-106); Potassium 3.7 mmol/L (3.5-5.1); Sodium 139 mmol/L (136-145); Total Protein 6.1 g/dL (6.4-8.2)
[2025-03-12] MEDS: HYDROmorphone 2 MG/ML SYR 0.5 MG IVP (07:32)
[2025-03-12 08:15] VITALS: BP 105/62; PULSE 62; RESP 16; TEMP 36.4; O2SAT 93
[2025-03-12] MEDS: Tamsulosin 0.4 MG CAPCR PO (08:28)
[2025-03-12] MEDS: DULoxetine 30 MG CAP 60 MG PO (08:28)
[2025-03-12] MEDS: Clopidogrel 75 MG TAB PO (08:28)
[2025-03-12] MEDS: dilTIAZem CD 120 MG CAPCR PO (08:28)
[2025-03-12] MEDS: Refresh PLUS Eye Drops 0.4ml OP (08:28)
[2025-03-12] MEDS: Omega-3 Fatty Acids 1000 MG CAP PO (08:28)
--- NOTE | 2025-03-12 10:39 | W.NUTRFU ---
Documented by User: Ion Teresa 03/12/25 11:58 Date of service: 03/12/25 Time of Service: 10:00 Nutrition Note NOTE: The patient was admitted on 03/12/2025 after suffering a fall. The patient has only had a breakfast meal during his stay so far. The patient reports a satisfying portion. The patient does not report any dietary restrictions, preferences, or allergies, though the patient does request a substitution of coffee for hot chocolate at breakfast and lunch. The patient does not follow any dietary patterns, though he does report being on a diet for general weight loss. The diet focuses on reducing caloric intake only and reportedly alleviates his COPD symptoms as well. The patient has seen significant intentional weight loss of over 160 pounds both before being on a weight loss drug and while being on it. The patient reports no issues with chewing or swallowing. Height: 178 cm, steady. Weight: 145 kg (IBW = 73 kg), decreasing intentionally. BMI: 45.8 kg/m^2, decreasing intentionally. Recent blood glucose measurement of 101 mg/dL on 03/12/2025. 06:43. No A1c or lipid panels available. No nutritional physical exam was performed, but the patient displayed no visual signs of malnutrition and appears well-nourished. The patient lives with his and daughter, has three meals a day prepared, and does not report skipping meals. The patient also reports attending a [employer] activity, with intention to continue after discharge. Estimated nutrition requirements: 2,631 kcal/day (MFJ * 1.2 AF). Recommend 500 kcal/day deficit for weight loss (net 2,131 kcal/day). Protein needs: 110g - 180g/day. (1.5-2.5 g/kg IBW) Fluid needs: 2,631 mL/day. (1mL per required kcal) Nutritional diagnosis: Overweight/obesity (NC-3.3). Nutrition intervention: No acute intervention recommended at this time. Patient was given outpatient information for continued support following discharge. Monitoring: Will continue to monitor patient PO intake, weight, nutrition-related labs, and ongoing food preferences during admission. Time Spent in Nutritional Counseling and Treatment: 5 min Documented by User: James Machuca RDN 03/12/25 12:02 Nutrition Note NOTE: The patient was admitted on 03/12/2025 after suffering a fall. The patient has only had a breakfast meal during his stay so far. The patient reports a satisfying portion. The patient does not report any dietary restrictions, preferences, or allergies, though the patient does request a substitution of coffee for hot chocolate at breakfast and lunch. The patient does not follow any dietary patterns, though he does report being on a diet for general weight loss. The diet focuses on reducing caloric intake only and reportedly alleviates his COPD symptoms as well. The patient has seen significant intentional weight loss of over 160 pounds both before being on a weight loss drug and while being on it. The patient reports no issues with chewing or swallowing. Height: 178 cm, steady. Weight: 145 kg (IBW = 73 kg), decreasing intentionally. BMI: 45.8 kg/m^2, decreasing intentionally. Recent blood glucose measurement of 101 mg/dL on 03/12/2025. 06:43. No A1c or lipid panels available. No nutritional physical exam was performed, but the patient displayed no visual signs of malnutrition and appears well-nourished. The patient lives with his and daughter, has three meals a day prepared, and does not report skipping meals. The patient also reports attending a [employer] activity, with intention to continue after discharge. Estimated nutrition requirements: 2,631 kcal/day (MFJ * 1.2 AF). Recommend 500 kcal/day deficit for weight loss (net 2,131 kcal/day). Protein needs: 110g - 180g/day. (1.5-2.5 g/kg IBW) Fluid needs: 2,631 mL/day. (1mL per required kcal)
--- NOTE | 2025-03-12 11:29 | PHA.REVIEW2 ---
Pharmacy Admission Review Admission Clinical Review Admission Pharmacy Review: Chronic indwelling Pacheco catheter (Acute) Dyslipidemia (Acute) Pain in left knee (Acute) Chronic obstructive pulmonary disease with (acute) exacerbation (Acute) aspirin Allergy (Verified 12/31/24 12:15) Other (See Comment) nafcillin Allergy (Verified 12/31/24 12:15) Other (See Comment) Resuscitation Status Full Code Height 5 ft 10 in Weight 144.9 kg Comments Comments/Follow Ups: Transfer pending bed availability Pharmacy Admission Review Renal Dosing Renal Dosing: BUN 8 mg/dL (7-18) 03/12/25 06:43 Creatinine 0.8 mg/dL (0.70-1.30) 03/12/25 06:43 Medications needing adjustments: Reviewed (CrCl 90.45 mL/min) List of meds needing interventions: Current medications are okay Anticoagulation Anticoagulation: Hgb 11.9 g/dL (13.5-17.5) L 03/12/25 06:43 Hct 36.3 % (40.0-50.0) L 03/12/25 06:43 Plt Count 206 10^3/uL (130-400) 03/12/25 06:43 Creatinine 0.8 mg/dL (0.70-1.30) 03/12/25 06:43 DVT Prophylaxis: Intervened (holding forn ow due to possible procedure per provider) Opiate Usage Evaluate Pain Scale/Pains Meds: Reviewed (hydromorphone 0.5mg IVP q2h PRN - 1.5mg/24hrs) Scheduled Bowel Reg ordered if on Opiates?: No (PRN docusate/Miralax) Relevant Labs Relevant Labs: Sodium 139 mmol/L (136-145) 03/12/25 06:43 Potassium 3.7 mmol/L (3.5-5.1) 03/12/25 06:43 Chloride 103 mmol/L (98-107) 03/12/25 06:43 Electrolytes, C-Reactive P, ESR: Reviewed Cardiac Review Cardiac Review: Blood Pressure 105/62 0815 Blood Pressure 110/50 0051 Blood Pressure 113/57 0008 BP, HR, EF%: Reviewed (HR WNL) List meds needing interventions: Has order for diltiazem CD 120mg daily QTc Review QTc: Reviewed (No EKG on file) IV to PO Switch IV Medications: Reviewed (hydromorphone) Home Meds Home Med List reviewed: Intervened Relevent Home Meds Not ordered & why?: Ozempic (weekly) Had order pending from home med list for colchicine 0.6mg daily. Per home med list takes for gout flare ups. Asked provider if patient needed this ordered, provider asked that the order be canceled Orders put in for Spiriva inhaler and Stiolto inhaler - both on patients home med list. Asked nurse to verify which one patient takes at home, per patient he uses both. Spoke to provider and respiratory therapist. Order for Spiriva canceled and Stiolto verified and sent to floor. Changed diclofenac gel from scheduled to as needed based on home med list Current Meds Current Medication Order Review: Intervened Comments: Added IV access order Comments Comments/Follow Ups: Transfer pending bed availability
[2025-03-12] MEDS: HYDROmorphone 2 MG/ML SYR 1 MG IVP ×3 (13:03→19:14)
[2025-03-12] MEDS: Normal Saline Flush 10 ML SYR IVP ×3 (13:04→19:14)
[2025-03-12] MEDS: Tiotropium/Olodaterol 10 PUFF INHALER 2 PUFF IH (14:35)
--- NOTE | 2025-03-12 14:56 | PDOC.CMIN ---
Date of service: 03/12/25 Time of Service: 14:56 Care Management Initial Assmt Initial Assessment Reason for Hospitalization: left tibial fracture Functional Status/Living Situation Patient Presentation: Michael was sitting up in bed when CM met with him. He reported that he has seen two doctors today, and that his plan is to transfer to [facility] for continued management of his left tibial fracture. He is comfortable with this plan. He reported pain in his leg during the conversation; CM notified his RN for pain management. Michael stated that he lives in [place] with his and one of his daughters. He reported that he has six children, twenty-six grandchildren, and nine great grand children. He is a , and reported that he is 100% service connected due to his disability. He stated that he receives most of his care at the [facility], but he does not have a [facility] bilingual patient support caseworker at this time. Per report, he has been accepted at [facility], and will likely transfer today, if a bed becomes available. CM will continue to follow. Town of Residence: [place] Resides with: Spouse (, Nadia) Significant Other/Family: Local [employer]: , children and many grandchildren. Employment Status: Retired Instrumental Activities of Daily Living (ADLs): Independent Medications Medication Management: No Issues/Barriers identified Advance Directives Advance Directives: Do you have an Advance Directive: N 12/31/24, 12:11 AD On File at [facility]: N 12/31/24, 12:09 Date Asked 03/11/25 03/11/25, 20:49 AD Date Reviewed COLST On File at [facility] COLST Date Scanned Code Status Resuscitation Status Full Code Insurance Coverage/Financial Issues Insurance: [facility] Care Team Visit Care Team Role Provider Type Jigar Rae MD MD [facility] STAFF PHYSICIAN Laquita Callahan Primary Care Provider OSTEOPATHIC DOCTOR JOSESITO [facility] Provider PHYSICIANS VICE PRESIDENT INDUSTRIAL RELATIONS Stef Norman MD Admit Provider [facility] STAFF PHYSICIAN Attending Provider Discharge Potential Discharge Needs: PCP F/U Appt Anticipated Barriers to Discharge: Bed availability Patient/Family Education Needs: Review discharge instructions, discuss Ask Me Three Transportation: EMS Plan: Michael has been accepted at [facility] for transfer, awaiting bed availability. He will transport via EMS, once a bed becomes available. He will follow up with his PCP and his discharge plan of care. CM will continue to follow. Social Determinants of Health Screening Social Determinants of health last assessed in clinic: 03/12/25 Will the Patient Participate in the Screening?: Yes Do you worry about having a steady place to live?: yes What is your living situation today?: I have housing today, but am worried about losing it Problems where you live: no known problems In the past 12 months, have you had to go without electric, gas, oil or water in your home?: no 1. Within the past 12 months, we worried whether our food would run out before we got money to buy more.: Don't know/refused 2. Within the past 12 months, the food we bought just didn't last and we didn't have money to get more.: Don't know/refused Has lack of transportation kept you from medical appointments or from doing things needed for daily living?: no Has anyone in your life made you feel unsafe or unsupported?: no How hard is it for you to pay for the very basics like food, housing, medical care, and heating? Would you say it is:: Somewhat hard Do you want help finding or keeping work or a job?: I do not need or want help If for any reason you need help with day-to-day activities such as bathing, preparing meals, shopping, managing finances, etc., do you get the help you need?: I don’t need any help How often do you feel lonely or isolated from those around you?: Never Do you speak a language other than [place] at home?: No Does the patient want assistance with any of the above?: No Health Related Social Needs Health related social needs: housing instability, housed, with risk of homelessness (Z59.811) and problems related to housing/economic circumstances (Z59.89) Health related social needs details: N/A PFSH All Active Problems (Updated 03/12/25 @ 01:10 by Stef Norman MD) Chronic indwelling Pacheco catheter (Acute) Dyslipidemia (Acute) Gout (Chronic) BPH (benign prostatic hyperplasia) (Chronic) Periprosthetic fracture around internal prosthetic left knee joint (Acute) Post-traumatic stress disorder, chronic (Acute) Pain in left knee (Acute) Obstructive sleep apnea (adult) (pediatric) (Acute) Nonrheumatic aortic (valve) insufficiency (Acute) Muscle weakness (generalized) (Acute) Chronic obstructive pulmonary disease with (acute) exacerbation (Acute) Medical History (Updated 03/12/25 @ 01:10 by Stef Norman MD) Obesity Sleep apnea Aortic regurgitation CAD (coronary artery disease) Unspecified open wound, right lower leg, initial encounter Mild intermittent asthma with (acute) exacerbation Male erectile dysfunction, unspecified Major depressive disorder, 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 Housing: other
--- NOTE | 2025-03-12 15:35 | W.PM.PROGNOT ---
Date of Service Date of service: 03/12/25 Time of Service: 15:35 Assessment and Plan Assessment and plan (1) Pain in left knee: Status: Acute Assessment and plan: -Patient with tibial fracture as seen on imaging -discussed with [facility] Orthopedics, too complicated to be handled here - Patient accepted [place] [facility] bed availability (2) Chronic obstructive pulmonary disease with (acute) exacerbation: Status: Acute Assessment and plan: -without acute exacerbation -Continue with inhalers -albuterol/tiotropium/olodaterol (3) Hx of right BKA: Assessment and plan: -Noted (4) BPH (benign prostatic hyperplasia): Status: Chronic Assessment and plan: -continue home prazosin and flomax (5) Gout: Status: Chronic Assessment and plan: -continue home colchicine (6) Dyslipidemia: Status: Acute Assessment and plan: -continue home rosuvastatin (7) Chronic indwelling Pacheco catheter: Status: Acute Assessment and plan: -Placed approx 12/23/24 at the [place] assuming perioperatively/post op. -too be managed by [facility] [place]ical team Subjective Subjective Interval history since last seen: Patient states that his pain is mostly controlled but would like a slight increase in his pain medications. Otherwise he understands we are awaiting bed availability for transfer to [facility]. Exam Narrative Exam Narrative: well appearing gentelman laying in bed in noacute distress, AOx4, heart RRR, lungs CTAB, abdomen soft, non-tender, non-distended, RLE s/p AKA, LLE with significant swelling inferior to the knee Objective Last Vital Signs Temp 97.5 F L 03/12/25 08:15 Pulse 62 03/12/25 08:15 Resp 16 03/12/25 08:15 BP 105/62 03/12/25 08:15 Pulse Ox 93 03/12/25 08:15 Laboratory Results - last 24 hr 03/12/25 06:43 WBC 6.65 RBC 4.33 L Hgb 11.9 L Hct 36.3 L MCV 84 MCH 27.5 MCHC 32.8 RDW 13.7 Plt Count 206 MPV 9.8 Immature Gran % 0.2 Neutrophils % 61.4 Lymphocytes % 23.0 Monocytes % 11.0 Eosinophils % 3.8 Basophils % 0.6 Nucleated RBC % 0.0 Absolute Neutrophils 4.09 Absolute Lymphocytes 1.53 Absolute Monocytes 0.73 Absolute Eosinophils 0.25 Absolute Basophils 0.04 Sodium 139 Potassium 3.7 Chloride 103 Carbon Dioxide 30.6 Anion Gap 5.4 BUN 8 Creatinine 0.8 Est GFR (CKD-EPI 2020) 91.72 Glucose 101 Calcium 8.2 L Total Bilirubin 0.9 AST 14 L ALT 18 Alkaline Phosphatase 107 Total Protein 6.1 L Albumin 2.7 L Time Spent with Patient Time Spent with Patient: >50 minutes Time was spent: preparing to see the patient(eg.review tests), obtaining and/or reviewing separately otained hiistory, ordering medications,tests, procedures, referring, communicating with other health residential child care counselor, indepentently interpreting results, counseling the patient and care coordination
--- NOTE | 2025-03-12 16:07 | DSE_ITS ---
Date of service: 03/12/25 Time of Service: 16:08 DS: Diagnosis Discharge Diagnosis (1) Pain in left knee: Status: Acute (2) Chronic obstructive pulmonary disease with (acute) exacerbation: Status: Acute (3) Hx of right BKA: (4) BPH (benign prostatic hyperplasia): Status: Chronic (5) Gout: Status: Chronic (6) Dyslipidemia: Status: Acute (7) Chronic indwelling Pacheco catheter: Status: Acute Discharge Plan Disposition Patient Disposition: Transfer-Acute Inpatient Care Specific Acute Inpt Facility: [facility] Condition: Good Discharge Details Reason For Visit: Left Tibial Fracture Admit Date/Time: 03/11/25 23:22 Admit Provider: Stef Norman Attending Provider: Stef Norman Primary Care Provider: Laquita Callahan [facility] Hospital Course: Patient presented after a fall and was found to have a left proximal tibial fracture through the prosthetic where he had knee replacement. Due to the complexity of surgical repair, patient was accepted to [facility] orthopedic surgery for surgical intervention and was determined to be stable for transfer. Home Meds and New Rx's Prescriptions: No Action albuterol sulfate 90 mcg/actuation HFA aerosol inhaler 2 puff inhalation Q4H PRN carboxymethylcellulose sodium 0.5 % dropperette 1 drp ophthalmic (eye) QID Rx Instructions: instill one drop in both eyes four times a day for dry eye clopidogrel 75 mg tablet 75 mg PO DAILY colchicine 0.6 mg tablet 0.6 mg PO DAILY Rx Instructions: take tablets by mouth as directed: for gout at first sign of gout flare, take 2 tablets immediately then take 1 tablet 1 hour later, then take 1 tablet twice daily for 2 days. Then 1 tablet daily for 2 days. Then stop. diclofenac sodium 3 % gel 1 applic topical BID Rx Instructions: apply 1 application topically twice daily as needed for pain/inflammation apply to left shoulder diltiazem HCl 120 mg capsule,extended release 24hr 120 mg PO DAILY duloxetine 60 mg capsule,delayed release(DR/EC) 60 mg PO DAILY tiotropium-olodaterol 2.5-2.5 mcg/actuation mist 2 puff inhalation DAILY prazosin 2 mg capsule 2 mg PO QHS rosuvastatin 40 mg tablet 40 mg PO DAILY tamsulosin 0.4 mg capsule 0.4 mg PO DAILY tiotropium bromide 2.5 mcg/actuation mist 2 puff inhalation DAILY semaglutide (weight loss) 2.4 mg/0.75 mL pen injector 2.4 mg subcut QWEEK omega-3 fatty acids 1,000 mg capsule 1,000 mg PO DAILY Discharge Instructions Activity:: Activity as Tolerated Equipment/Supplies:: No Equipment Needed Diet:: As Tolerated Discharge Orders Discharge Orders: Discharge Order (Routine); Ordered 03/12/25 Ordered By: Jigar Rae DS: Summary Time Spent with Patient providing and/or coordinating discharge services: Greater than 30 minutes Status at Discharge Functional status at discharge: independent ambulation Overall status at discharge: patient is back to baseline Mental Status: mental status grossly normal Speech and Movement: speech and movement normal Mood: congruent mood Affect: normal affect Quality:SDOH Health Related Social Needs: Health related social needs risk of homeless house/eco n circumstance Health related social needs details N/A Health related social needs details: N/A Exam Narrative Exam Narrative: well appearing gentelman laying in bed in noacute distress, AOx4, heart RRR, lungs CTAB, abdomen soft, non-tender, non-distended, RLE s/p AKA, LLE with significant swelling inferior to the knee Psych Mental Status: mental status grossly normal Speech and Movement: speech and movement normal Mood: congruent mood Affect: normal affect DS: Data Vitals/I&O Vitals and I&O: Vital Signs Temperature 97.5 F L 03/12/25 08:15 Temperature Source Temporal Artery Scan 03/12/25 08:15 Pulse 62 03/12/25 08:15 Pulse Rhythm Regular 03/12/25 00:51 Respiratory Rate 16 03/12/25 08:15 Respiratory Effort Normal 03/12/25 00:51 Respiratory Depth Normal 03/12/25 00:51 Blood Pressure 105/62 03/12/25 08:15 Blood Pressure Mean 76 03/12/25 08:15 Blood Pressure Position Supine 03/11/25 20:28 Pulse Oximetry 93 03/12/25 08:15 Oxygen Delivery Method Room Air 03/12/25 08:15 Oxygen Flow Rate 0 03/12/25 08:15 Pain Level 10 03/12/25 16:04 Intake & Output 03/11/25 03/12/25 03/12/25 17:59 05:59 17:59 Intake Total 600 / 600 Balance 600 / 600 Weight 319 lb 7.197 oz Intake: Oral 600 / 600 Other: Urine Color Yellow Urine Appearance Clear Clear Urine Odor None Data Completed and Pending Pending Labs at Discharge: 03/12/25 06:43 WBC 6.65 RBC 4.33 L Hgb 11.9 L Hct 36.3 L MCV 84 MCH 27.5 MCHC 32.8 RDW 13.7 Plt Count 206 MPV 9.8 Immature Gran % 0.2 Neutrophils % 61.4 Lymphocytes % 23.0 Monocytes % 11.0 Eosinophils % 3.8 Basophils % 0.6 Nucleated RBC % 0.0 Absolute Neutrophils 4.09 Absolute Lymphocytes 1.53 Absolute Monocytes 0.73 Absolute Eosinophils 0.25 Absolute Basophils 0.04 Sodium 139 Potassium 3.7 Chloride 103 Carbon Dioxide 30.6 Anion Gap 5.4 BUN 8 Creatinine 0.8 Est GFR (CKD-EPI 2020) 91.72 Glucose 101 Calcium 8.2 L Total Bilirubin 0.9 AST 14 L ALT 18 Alkaline Phosphatase 107 Total Protein 6.1 L Albumin 2.7 L PFSH All Active Problems (Updated 03/12/25 @ 01:10 by Stef Norman MD) Chronic indwelling Pacheco catheter (Acute) Dyslipidemia (Acute) Gout (Chronic) BPH (benign prostatic hyperplasia) (Chronic) Periprosthetic fracture around internal prosthetic left knee joint (Acute) Post-traumatic stress disorder, chronic (Acute) Pain in left knee (Acute) Obstructive sleep apnea (adult) (pediatric) (Acute) Nonrheumatic aortic (valve) insufficiency (Acute) Muscle weakness (generalized) (Acute) Chronic obstructive pulmonary disease with (acute) exacerbation (Acute) Medical History (Updated 03/12/25 @ 01:10 by Stef Norman MD) Obesity Sleep apnea Aortic regurgitation CAD (coronary artery disease) Unspecified open wound, right lower leg, initial encounter Mild intermittent asthma with (acute) exacerbation Male erectile dysfunction, unspecified Major depressive disorder, 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 Housing: other Time Spent with Patient Time Spent with Patient: <45 minutes Time was spent: preparing to see the patient(eg.review tests), obtaining and/or reviewing separately otained hiistory, ordering medications,tests, procedures, referring, communicating with other health direct care worker, indepentently interpreting results, counseling the patient and care coordination
--- NOTE | 2025-03-12 18:05 | NUR.NOTE ---
Nursing Note: Nurse to nurse report given to nursing staff [place] [facility] [place] All questions answered. Pt is all packed up to be transferred by EMS. Transportation is to arrive at approx [phone].
== END 2025-03-12 19:23 | disposition short-term general hospital (02) | DRG 563 ==
LOC: ER 23:40 → MS 03-12 00:29
PROVIDERS: Admitting Provider Hospitalist; Emergency Provider Physician Assistant; PCP Internal Medicine Geriatric Medicine; Responsible Provider Family Medicine; Visit Provider Hospitalist
DX: S82.192A Other fracture of upper end of left tibia, initial encounter for closed fracture (principal); M97.12XA Periprosthetic fracture around internal prosthetic left knee joint, initial encounter; J44.1 Chronic obstructive pulmonary disease with (acute) exacerbation; F33.8 Other recurrent depressive disorders; Z68.42 Body mass index [BMI] 45.0-49.9, adult; M25.562 Pain in left knee; W18.39XA Other fall on same level, initial encounter; Z79.899 Other long term (current) drug therapy; Z89.511 Acquired absence of right leg below knee; E66.9 Obesity, unspecified; N40.0 Benign prostatic hyperplasia without lower urinary tract symptoms; M10.9 Gout, unspecified; E78.5 Hyperlipidemia, unspecified; I10 Essential (primary) hypertension; G47.33 Obstructive sleep apnea (adult) (pediatric); F43.10 Post-traumatic stress disorder, unspecified; Z96.0 Presence of urogenital implants; I35.1 Nonrheumatic aortic (valve) insufficiency; I25.10 Atherosclerotic heart disease of native coronary artery without angina pectoris; J45.20 Mild intermittent asthma, uncomplicated
CPT/HCPCS: 00123; 36415; 73562; 80053; 94640; 96374; 96376; 99285; J1650; 70450; 73590; 85025; 99222; 99236; J1171